=== PATIENT | male | born 1970 | race Caucasian/White ===

== ENCOUNTER → 2023-09-22 07:24 | Outpatient (REF) | payer OTHER, SELFPAY | LOC: PAVMRI 07:24 | PROVIDERS: ATTENDING PHYSICIAN Internal Medicine Cardiovascular Disease; FAMILY PHYSICIAN Family Medicine | DX: I71.21 Aneurysm of the ascending aorta, without rupture (principal) | CPT/HCPCS: 71555; A9585 ==